=== PATIENT | female | born 1985 | race Caucasian/White ===

== ENCOUNTER 2019-06-05 11:16 | Emergency (ER) | payer OTHER ==
[2019-06-05 11:20] VITALS: BP 112/77; PULSE 76; TEMP 98.1; BMI 29.1
[2019-06-05] MEDS ORDERED: KETOROLAC TROMETHAMINE 60 MG/2 ML VIAL IM ONE (11:40)
--- NOTE | 2019-06-05 11:40 | PDOC ---
History of Present Illness - General Chief Complaint: Pain Stated Complaint: PAIN Time Seen by Provider: 06/05/19 11:25 History Source: Patient, Parent(s) Exam Limitations: No Limitations - History of Present Illness Initial Comments: 06/05/19 12:31 . Patient came for evaluation of pleuritic chest pain and cough for approximately 1 week. States had a cold that moved into her chest over the past week but yesterday was coughing when experienced an acute onset of pain to her lower left chest wall. Has only used Delsym for cough relief which she is experiencing some good relief denies fever, denies earache or sore throat pain. States is a smoker Is this a multiple visit Asthma Patient?: No Timing/Duration: reports: getting worse, intermittent Severity: reports: moderate Modifying Factors: improves with: coughing Associated Symptoms: reports: nasal congestion Past History - Travel Traveled outside of the country in the last 30 days: No Close contact w/someone who was outside of country & ill: No - Past Medical History Allergies/Adverse Reactions: Allergies Allergy/AdvReac Type Severity Reaction Status Date / Time No Known Allergies Allergy Verified 06/05/19 11:19 Home Medications: Ambulatory Orders Benzonatate [Tessalon Pearls -] 100 mg PO TID #21 capsule 06/05/19 Naproxen [Naprosyn -] 500 mg PO BID #30 tablet 06/05/19 COPD: No - Surgical History Appendectomy: Yes (2005) - Psycho Social/Smoking Cessation Hx Smoking History: Current every day smoker Information on smoking cessation initiated: No Review of Systems - Review of Systems Able to Perform ROS?: Yes Is the patient limited Azeri proficient: Yes Constitutional: Yes: Symptoms Reported, See HPI, Malaise HEENTM: Yes: Symptoms Reported, See HPI, Nose Congestion Respiratory: Yes: Symptoms reported, See HPI, Cough, Shortness of Breath, Wheezing Integumentary: Yes: Symptoms Reported All Other Systems: Reviewed and Negative *Physical Exam - Vital Signs Last Vital Signs Temp Pulse Resp BP Pulse Ox 98.1 F 76 18 112/77 99 06/05/19 11:17 06/05/19 11:17 06/05/19 11:17 06/05/19 11:17 06/05/19 11:17 - Physical Exam General Appearance: Yes: Nourished, Appropriately Dressed, Apparent Distress, Mild Distress HEENT: positive: TRAM, TMs Normal (Congested but landmarks easily visualized), Pharynx Normal, Rhinorrhea, Sinus Tenderness Neck: positive: Supple, Lymphadenopathy (R), Lymphadenopathy (L) Respiratory/Chest: positive: Lungs Clear, Normal Breath Sounds (No wheezing or retractions, has pain reproduced with deep inspiration primarily left chest wall ) Musculoskeletal: positive: Normal Inspection Extremity: positive: Normal Inspection, Normal Range of Motion Integumentary: positive: Normal Color, Dry, Warm, Pale Neurologic: positive: wide area network engineer II-XII NML intact, Fully Oriented, Alert, Normal Mood/ Affect, Normal Response ED Progress Note - Progress Note Progress Note: 06/05/19 12:34 Pleuritic chest pain, with bronchitis. Chest x-ray negative for infiltrates. Will treat conservatively and provide Tessalon Perles and anti-inflammatories. Discharge - Discharge Information Problems reviewed: No Clinical Impression/Diagnosis: Bronchitis Condition: Stable Disposition: HOME - Admission No - Follow up/Referral Referrals: Piedad Bronson MD [Primary Care Provider] - - Patient Discharge Instructions Patient Printed Discharge Instructions: DI for Acute Bronchitis Additional Instructions: Rest, drink lots of fluids: Teas, water, soups, Pedialyte Cold things taste good with a sore throat: Ice pops, ice chips, ice cream which also provide rehydration Humidify room to keep airways moist Avoid contact with others until fevers and cough resolved Lots of handwashing and good hygiene Continue [id number] medications for symptomatic relief Tylenol or Motrin for fever and pain Followup with private physician in one to 2 days as needed Return to emergency department for worsened symptoms, fevers, dehydration - Post Discharge Activity Work/Back to School Note: Back to Work
[2019-06-05] MEDS ORDERED: KETOROLAC TROMETHAMINE 60 MG/2 ML VIAL ONE (11:43)
== END 2019-06-05 12:27 | disposition home or self-care (01) ==
LOC: JERFT 11:16
PROC: 3E0233Z Introduction of Anti-inflammatory into Muscle, Percutaneous Approach (ICD-10-PCS; principal; 2019-06-05)
DX: J20.9 Acute bronchitis, unspecified (principal); F17.210 Nicotine dependence, cigarettes, uncomplicated
CPT/HCPCS: 71046-TC-FY; 99282-25